=== PATIENT | male | born 1980 | race Two or more races ===

== ENCOUNTER 2017-02-28 01:23 | Inpatient (IN) | payer MEDICAID ==
--- NOTE | 2017-02-27 10:00 | NUR ---
Pt received from er. Noted Redness on right foot. Right foot + 2 edema. Noted wound on medial side of right foot and lateral side UTD measurements. IV on Left ac intact 20 gauge. Call light is within reach. Pt is in no acute distress. Addendum: 03/01/17 at 0229 by WATSON NORTON RN Wrong time and date
[~2017-02-28] VITALS: Ht 172.7 cm; Wt 122.5 kg
[2017-02-28] MEDS ORDERED: [UNRECOGNIZED DRUG - OTHER] (01:41)
[2017-02-28] MEDS ORDERED: HUMALOG (01:41)
[2017-02-28] MEDS ORDERED: GABAPENTIN CAP 300MG PO (01:44)
[2017-02-28] MEDS ORDERED: IBUPROFEN TAB 800MG PO (01:44)
[2017-02-28] MEDS ORDERED: BUPR1FIL3 SL (01:44)
[2017-02-28] MEDS ORDERED: INSU100V7 SQ (01:44)
[2017-02-28] MEDS ORDERED: INSU100C SQ (01:44)
--- NOTE | 2017-02-28 02:30 | NUR ---
Pt ambulated to room with use of crutches. Pt c/o redness, swelling, pain and drainage to right foot from previous wound debridement / toe amputation. Pt resting in position of comfort for self, awaiting further eval.
[2017-02-28] MEDS ORDERED: CEFTRIAXONE 1 G in IV DEXTROSE 5% 50 ML IV ONE (04:15)
[2017-02-28] MEDS ORDERED: VANCOMYCIN IV 1,000 MG in IV DEXTROSE 5% 250 ML IV ONE (04:15)
[2017-02-28] MEDS ORDERED: MORPHINE SULFATE 2 MG/1 ML DISP.SYRIN IV ONE (04:15)
[2017-02-28] MEDS ORDERED: METRONIDAZOLE 500 MG/NS 100ML 100 ML IV ONE ×2 (04:15→05:06)
[2017-02-28] MEDS ORDERED: IV NORMAL SALINE 1000 ML BAG IV ONE (04:15)
[2017-02-28] MEDS ORDERED: ONDANSETRON 4 MG/2 ML VIAL IV ONE (04:15)
[2017-02-28] MEDS ORDERED: MORPHINE SULFATE 4 MG/1 ML DISP.SYRIN ONE (05:05)
[2017-02-28] MEDS ORDERED: ONDANSETRON 4 MG/2 ML VIAL ONE (05:05)
[2017-02-28] MEDS ORDERED: CEFTRIAXONE 1 G VIAL ONE (05:05)
[2017-02-28 05:20] LABS: BASOPHILS % (AUTO) 0.3 % (0.0-2.0); EOSINOPHILS # (AUTO) 0.2 K/uL (0.0-0.7); EOSINOPHILS % (AUTO) 1.6 % (0.0-7.0); HEMATOCRIT 29.2 % (40-50); HEMOGLOBIN 9.1 G/DL (14.0-18.0); LYMPHOCYTES # (AUTO) 1.7 K/UL (0.8-4.8); LYMPHOCYTES % (AUTO) 12.1 % (20.5-51.5); MEAN CORPUSCULAR HEMOGLOBIN 21.9 UUG (27.0-31.0); MEAN CORPUSCULAR HGB CONC 31 g/dL (32.0-37.0); MEAN CORPUSCULAR VOLUME 69.8 FL (82.0-92.0); MONOCYTES # (AUTO) 0.7 K/UL (0.1-1.30); MONOCYTES % (AUTO) 4.8 % (0.0-11.0); NEUTROPHILS # (AUTO) 11.1 K/UL (1.8-8.9); NEUTROPHILS % (AUTO) 81.2 % (38.5-71.5); PLATELET COUNT (AUTO) 581 K/UL (150-450); RED BLOOD CELL COUNT(AUTO) 4.19 MIL/UL (4.7-6.1); WHITE BLOOD COUNT (AUTO) 13.7 K/UL (4.0-11.2)
[2017-02-28 05:33] LABS: CREATININE 0.9 mg/dL (0.6-1.3); POTASSIUM 3.8 mmol/L (3.5-5.1)
[2017-02-28 05:46] LABS: BILIRUBIN,DIRECT 0.1 mg/dL (0.0-0.2); BILIRUBIN,TOTAL 0.1 mg/dL (0.2-1.0)
--- NOTE | 2017-02-28 06:02 | NUR ---
Caroline paged for Dr. Holman
--- NOTE | 2017-02-28 06:31 | NUR ---
Pt resting in position of comfort for self. Resp even and unlabored. No obvious signs of distress at this time. Admission pending.
[2017-02-28] MEDS ORDERED: VANCOMYCIN IV 200 ML ONE (06:39)
--- NOTE | 2017-02-28 07:23 | NUR ---
Report given to KATHE Lockhart. I relinquish care of pt at this time
--- NOTE | 2017-02-28 07:25 | NUR ---
recieved pt in bed, resting. no bed available at this time. house piping inspector and floor charge nurse aware.
--- NOTE | 2017-02-28 09:00 | NUR ---
pt insisted on 4x4 and kerlix and mg to wrap the wound on lle.
--- NOTE | 2017-02-28 10:00 | NUR ---
Pt received from er. Noted Redness on right foot. Right foot + 2 edema. Noted wound on medial side of right foot and lateral side UTD measurements. IV on Left ac intact 20 gauge. Call light is within reach. Pt is in no acute distress.
[2017-02-28 10:55] VITALS: BP 135/76
[2017-02-28 12:05] LABS: *BILIRUBIN,URIN NEGATIVE (NEGATIVE); *BLOOD, URINE Trace-intact (NEGATIVE); *CLARITY,URINE CLEAR (CLEAR); *COLOR,URINE YELLOW (YELLOW); *KETONES,URINE NEGATIVE (NEGATIVE); *PROTEIN,URINE NEGATIVE (NEGATIVE); *UROBILINOGEN,URINE 0.2 E.U./dl (NORMAL); LEUKOCYTE ESTERASE ,URINE NEGATIVE (NEGATIVE); NITRITE, URINE NEGATIVE (NEGATIVE); PH,URINE 6.5 (5.0-8.0)
[2017-02-28] MEDS ORDERED: ONDANSETRON 4 MG/2 ML VIAL IV PRN ×2 (13:00→18:30)
[2017-02-28] MEDS ORDERED: INSULIN REGULAR, HUMAN 300 UNIT/3 ML VIAL SQ PRN (13:00)
[2017-02-28] MEDS ORDERED: INSULIN REGULAR, HUMAN 300 UNITS/3 ML VIAL SQ PRN (13:00)
[2017-02-28] MEDS ORDERED: PANTOPRAZOLE SODIUM 40 MG VIAL IV SCH (13:00)
[2017-02-28] MEDS ORDERED: DEXTROSE 50% 50 ML DISP.SYRIN IV PRN ×2 (13:00)
[2017-02-28 13:35] LABS: UGLUCOSE 2+ (NEGATIVE)
[2017-02-28 13:38] LABS: BACTERIA,URINE NONE SEEN /HPF (NONE SEEN); RBC,URINE NONE SEEN /HPF (0-3); SQUAMOUS EPITHELIAL CELL,UR FEW /HPF (NONE SEEN); WBC,URINE 0-3 /HPF (0-3); YEAST,URINE FEW /HPF (NONE SEEN)
[2017-02-28] MEDS: MORPHINE SULFATE 4 MG/1 ML DISP.SYRIN IV PRN ×3 (13:45→23:02)
--- NOTE | 2017-02-28 13:46 | NUR ---
CLINICAL PHARMACY NOTE:VANCOMYCIN DOSING request for vancomycin dosing on 37 y/o male 5'8" 270lbs for right foot cellulitis Temp 98.8 BUN 16 Scr 0.9 WBC 13.7 also on Zosyn Received vancomycin 1gm in ER at 0630 Continue vancomycin 2gm ivpb q10h estimated trough 16. Will order trough level prior to 4th dose. Will continue to monitor
[2017-02-28] MEDS: PIPERACILLIN/TAZOBACTAM/D5W 50 ML IV SCH ×2 (13:53→18:59)
[2017-02-28] MEDS: NICOTINE 14 MG/24HR PATCH TD SCH (13:53)
[2017-02-28 15:09] VITALS: BP 120/71
[2017-02-28] MEDS: VANCOMYCIN IV 2,000 MG in IV NORMAL SALINE 500 ML IV SCH (15:27)
[2017-02-28] MEDS ORDERED: BLOOD SUGAR DIAGNOSTIC 1 EACH STRIP VI SCH (16:30)
[2017-02-28] MEDS ORDERED: ZOLP10TA2 PO (16:55)
[2017-02-28] MEDS ORDERED: LORA-259 PO (16:56)
[2017-02-28] MEDS ORDERED: CADEXOMER IODINE 40 GM TUBE TOP SCH (17:00)
[2017-02-28] MEDS: BLOOD SUGAR DIAGNOSTIC 1 EACH STRIP VI SCH ×2 (17:31→21:25)
[2017-02-28] MEDS: INSULIN REGULAR, HUMAN 300 UNIT/3 ML VIAL SQ PRN (17:59)
[2017-02-28] MEDS ORDERED: HYDROCODONE/APAP 5-325MG TABLET PO PRN (18:30)
[2017-02-28] MEDS ORDERED: ACETAMINOPHEN 325 MG TABLET PO PRN (18:30)
--- NOTE | 2017-02-28 18:30 | NUR ---
Pt is in no acute distress. PT pain managed with dilaudid. Call light is within reach. PT alert and oriented x 3. Pt was seen by dr monahan took out sutures on right foot lateral and medial. Culture was sent earlier x 2 for the right foot wounds (lateral and medial). Dressing changed as ordered.
[2017-02-28] MEDS: GABAPENTIN 300 MG CAPSULE PO SCH (18:59)
[2017-02-28 19:00] VITALS: BP 111/65
[2017-02-28] MEDS ORDERED: DOCUSATE SODIUM 250 MG CAPSULE PO SCH (21:00)
[2017-02-28] MEDS ORDERED: RIFAMPIN 300 MG CAPSULE PO SCH (21:00)
[2017-02-28] MEDS: DOCUSATE SODIUM 100 MG CAPSULE PO SCH (21:12)
[2017-02-28] MEDS: LORAZEPAM 1 MG TABLET PO PRN (21:14)
[2017-02-28] MEDS: ZOLPIDEM 5 MG TABLET PO PRN (21:14)
[2017-02-28] MEDS: ENOXAPARIN SODIUM 40 MG/0.4 ML DISP.SYRIN SQ SCH (21:15)
[2017-02-28] MEDS: INSULIN DETEMIR 300 UNIT/3 ML CARTRIDGE SQ SCH (21:24)
[2017-02-28] MEDS: INSULIN REGULAR, HUMAN 300 UNITS/3 ML VIAL SQ PRN (21:28)
--- NOTE | 2017-03-01 | NUR ---
IV on left ac infiltrated. started new IV on right ac #20 gauge by er nurse. Call light is within reach.
--- NOTE | 2017-03-01 00:30 | NUR ---
Faxed missing vanco to nursing supervisor cab.
[2017-03-01] MEDS: PIPERACILLIN/TAZOBACTAM/D5W 50 ML IV SCH ×5 (00:33→19:05)
[2017-03-01] MEDS ORDERED: VANCOMYCIN 1000 MG VIAL ONE (03:11)
[2017-03-01] MEDS: MORPHINE SULFATE 4 MG/1 ML DISP.SYRIN IV PRN ×2 (03:35→19:05)
[2017-03-01] MEDS: VANCOMYCIN IV 2,000 MG in IV NORMAL SALINE 500 ML IV SCH ×3 (03:42→21:00)
[2017-03-01 04:00] VITALS: BP 133/81
--- NOTE | 2017-03-01 05:00 | NUR ---
Pt is in no acute distress. Call light is within reach. Pt slept comfortably.
[2017-03-01] MEDS: PANTOPRAZOLE SODIUM 40 MG TABLET.DR PO SCH ×2 (06:13→07:10)
[2017-03-01] MEDS: BLOOD SUGAR DIAGNOSTIC 1 EACH STRIP VI SCH ×4 (06:22→21:45)
[2017-03-01 07:54] LABS: BASOPHILS # (AUTO) 0.1 K/uL (0.0-8.0); BASOPHILS % (AUTO) 0.9 % (0.0-2.0); EOSINOPHILS # (AUTO) 0.3 K/uL (0.0-0.7); EOSINOPHILS % (AUTO) 3.6 % (0.0-7.0); HEMATOCRIT 26.3 % (36.7-47.1); HEMOGLOBIN 8.2 g/dL (12.5-16.3); LYMPHOCYTES # (AUTO) 1.4 K/uL (20.0-40.0); LYMPHOCYTES % (AUTO) 16.4 % (20.5-51.5); MEAN CORPUSCULAR HEMOGLOBIN 21.7 uug (23.8-33.4); MEAN CORPUSCULAR HGB CONC 31 g/dL (32.5-36.3); MEAN CORPUSCULAR VOLUME 69.3 fL (73.0-96.2); MONOCYTES # (AUTO) 0.5 K/uL (2.0-10.0); NEUTROPHILS # (AUTO) 6.4 K/uL (1.8-8.9); NEUTROPHILS % (AUTO) 73.1 % (38.5-71.5); PLATELET COUNT (AUTO) 476 K/uL (152-348)
[2017-03-01 08:01] LABS: THYROID STIMULATING HORMONE 0.865 mIU/mL (0.358-3.740)
[2017-03-01 08:08] LABS: BILIRUBIN,TOTAL 0.1 mg/dL (0.2-1.0); CREATININE 0.9 mg/dL (0.6-1.3); MAGNESIUM 1.9 mg/dL (1.8-2.4); PHOSPHOROUS 3.4 mg/dL (2.5-4.9); TOTAL PROTEIN, SERUM 7.1 g/dL (6.4-8.2)
[2017-03-01 08:31] LABS: WHITE BLOOD COUNT (AUTO) 8.7 K/uL (3.6-10.2)
[2017-03-01] MEDS: SODIUM HYPOCHLORITE 0.125% 473 ML BOTTLE TP SCH ×2 (09:00→17:54)
[2017-03-01] MEDS: NICOTINE 14 MG/24HR PATCH TD SCH (09:00)
--- NOTE | 2017-03-01 09:15 | NUR ---
pt refused to clean foot with solution stating, " I don't want to clean my foot now, I'd rather rest, I will do it later on in the day". pt was educated about the benefits of adhering to doctor's direction for medication and wound care. pt understands the consequences of not adhering to prescribed care.
[2017-03-01] MEDS: INSULIN REGULAR, HUMAN 300 UNIT/3 ML VIAL SQ SCH ×3 (09:26→16:42)
[2017-03-01] MEDS: FLUCONAZOLE 200 MG TABLET PO SCH (09:27)
[2017-03-01] MEDS: GABAPENTIN 300 MG CAPSULE PO SCH ×4 (09:27→16:44)
[2017-03-01] MEDS: CADEXOMER IODINE 40 GM TUBE TOP SCH ×2 (09:28→16:44)
[2017-03-01 11:13] VITALS: BP 124/65
--- NOTE | 2017-03-01 11:35 | NUR ---
CLINICAL PHARMACY NOTE:VANCOMYCIN DOSING To continue vancomycin dosing on 37 y/o male 5'8" 270lbs for right foot cellulitis Temp 98.2 BUN 10 Scr 0.9 WBC 8.7 Continue vancomycin 2gm ivpb q10h estimated trough 16. Second dose today at 1100. Trough ordered for tonight at 2030. RN to hold dose if Tr >20. Will check in am and adjust as needed. Will follow
[2017-03-01 12:53] LABS: BAND % (MANUAL) 1 % (0-10); EOSINOPHILS % (MANUAL) 7 % (0-8); LYMPHOCYTES % (MANUAL) 14 % (20-40); MONOCYTES % (MANUAL) 7 % (2-10); NEUTROPHILS % (MANUAL) 71 % (42-75)
--- NOTE | 2017-03-01 15:00 | NUR ---
pt c/o arm pain near IV site, upon assessment the IV is infiltrated. pt given ice and arm elevated. Pt managed to put IV on stand by and the vancomycin was stopped bagged will be continued.
[2017-03-01 15:09] VITALS: BP 121/77
--- NOTE | 2017-03-01 18:22 | NUR ---
WOUND CARE PROVIDED TO PT, DRESSING CHANGED, APPLIED MEDICATION PRESCRIBED BY MD. PT RIGHT UPPER ARM IV INFILTRATED, PT ARM IS SWOLLEN, ICE PACK GIVEN TO DECREASE SWELLING. NEW IV STARTED ON LEFT HAND, INTACT, NO INFILTRATION. PT REFUSED SELECT MEDS DURING THE DAY. PT HAS BEEN SLEEPING, LETHARGIC, WHEN ASKED IF THIS IS NORMAL PT STATES, " WHEN I AM NOT IN HOSPITAL , I HAVE INSOMNIA, HERE I CAN REST... I AM OK DON'T WORRY." CONTINUE TO MONITOR PT.
[2017-03-01 19:00] VITALS: BP 132/77
--- NOTE | 2017-03-01 19:30 | NUR ---
PATIENT ALERT ORIENTED, NO SOB NO CHEST PAIN, CONT ON PAIN MANAGEMENT, RIGHT FOOT DRESSING INTACT, CONT TO MONITOR.
[2017-03-01] MEDS: DOCUSATE SODIUM 100 MG CAPSULE PO SCH (21:32)
[2017-03-01] MEDS: INSULIN REGULAR, HUMAN 300 UNITS/3 ML VIAL SQ PRN (21:40)
[2017-03-01] MEDS: ENOXAPARIN SODIUM 40 MG/0.4 ML DISP.SYRIN SQ SCH (21:41)
[2017-03-01] MEDS: INSULIN DETEMIR 300 UNIT/3 ML CARTRIDGE SQ SCH (21:41)
--- NOTE | 2017-03-01 21:57 | NUR ---
VANCOMYCIN IV NOT GIVEN TROUGH IS 25.8, MEDS HELD PER MD ORDER.
[2017-03-02] MEDS: PIPERACILLIN/TAZOBACTAM/D5W 50 ML IV SCH ×4 (00:33→19:06)
[2017-03-02] MEDS: ZOLPIDEM 5 MG TABLET PO PRN ×2 (01:07→20:28)
[2017-03-02] MEDS: LORAZEPAM 1 MG TABLET PO PRN ×2 (01:07→21:23)
[2017-03-02] MEDS: MORPHINE SULFATE 4 MG/1 ML DISP.SYRIN IV PRN ×4 (01:15→23:06)
--- NOTE | 2017-03-02 01:55 | NUR ---
BOTTOM POLISHER FROM [facility] CALLED AND WANTED TO KNOW IF PATIENT WANTS TO BE TRANSFER TO [facility] SINCE A BED AVAILABLE. PATIENT REFUSED TO TALK TO INSURANCE REP, AND REFUSED TO BE TRANSFER AT THIS TIME. [facility] [employer] INSTRUCTOR STATED THAT SHE CALL THE MD FOR TRANSFER IN AM.
[2017-03-02 04:00] VITALS: BP 128/82
[2017-03-02] MEDS: PANTOPRAZOLE SODIUM 40 MG TABLET.DR PO SCH (06:00)
[2017-03-02] MEDS: VANCOMYCIN IV 2,000 MG in IV NORMAL SALINE 500 ML IV SCH ×2 (06:01→14:24)
[2017-03-02] MEDS: BLOOD SUGAR DIAGNOSTIC 1 EACH STRIP VI SCH ×4 (06:04→20:35)
--- NOTE | 2017-03-02 06:06 | NUR ---
PATIENT AWAKE, NO COMPLAIN OF PAIN, CONT ON PAIN MANAGEMENT, REMIND PATIENT THAT [facility] WANTS TO TRANSFER HIM TO [facility] DUE TO INSURANCE. PATIENT SLEPT MOST OF THE NIGHT, ASSISTED WITH EMPTYING URINALS, CALL LIGHT WITHIN REACH. DRESSING ON R FOOT INTACT, PATIENT MOVES ALL OVER THE BED, REMIND TO ELEVATE FOOT WITH PILLOW. CONT TO MONITOR.
--- NOTE | 2017-03-02 06:47 | NUR ---
VANCO IV NOT GIVEN, TROUGH LEVEL IS MORE THAN 20, WILL NOTIFY PHARMACY. SURFBOARD MAKER NURSE NOTIFY.
[2017-03-02] MEDS: INSULIN REGULAR, HUMAN 300 UNIT/3 ML VIAL SQ SCH ×3 (07:30→16:30)
--- NOTE | 2017-03-02 07:30 | NUR ---
Humulin R 14 unit routine med was held because pt blood sugar is 131, sliding scale was used pt given 2 units.
[2017-03-02] MEDS: GABAPENTIN 300 MG CAPSULE PO SCH ×3 (08:16→16:42)
[2017-03-02] MEDS: FLUCONAZOLE 200 MG TABLET PO SCH (08:17)
[2017-03-02] MEDS: INSULIN REGULAR, HUMAN 300 UNIT/3 ML VIAL SQ PRN ×2 (08:19→16:41)
[2017-03-02] MEDS: NICOTINE 14 MG/24HR PATCH TD SCH (09:00)
[2017-03-02] MEDS: SODIUM HYPOCHLORITE 0.125% 473 ML BOTTLE TP SCH ×2 (10:08→16:48)
[2017-03-02] MEDS: CADEXOMER IODINE 40 GM TUBE TOP SCH ×2 (10:08→16:48)
[2017-03-02 11:18] LABS: BASOPHILS # (AUTO) 0.1 K/uL (0.0-8.0); BASOPHILS % (AUTO) 1.2 % (0.0-2.0); EOSINOPHILS # (AUTO) 0.3 K/uL (0.0-0.7); EOSINOPHILS % (AUTO) 3.3 % (0.0-7.0); HEMATOCRIT 28.4 % (36.7-47.1); HEMOGLOBIN 9.2 g/dL (12.5-16.3); LYMPHOCYTES # (AUTO) 1.7 K/uL (20.0-40.0); LYMPHOCYTES % (AUTO) 21.1 % (20.5-51.5); MEAN CORPUSCULAR HEMOGLOBIN 22.1 uug (23.8-33.4); MEAN CORPUSCULAR HGB CONC 32 g/dL (32.5-36.3); MEAN CORPUSCULAR VOLUME 68.3 fL (73.0-96.2); MONOCYTES # (AUTO) 0.4 K/uL (2.0-10.0); MONOCYTES % (AUTO) 5.4 % (0.0-11.0); NEUTROPHILS # (AUTO) 5.6 K/uL (1.8-8.9); PLATELET COUNT (AUTO) 524 K/uL (152-348); RED BLOOD CELL COUNT(AUTO) 4.16 MIL/uL (4.06-5.63); WHITE BLOOD COUNT (AUTO) 8.1 K/uL (3.6-10.2)
--- NOTE | 2017-03-02 11:30 | NUR ---
pt given 4 units of insulin per sliding scale blood sugar 222. 14 unit dose held.
[2017-03-02 11:33] LABS: CREATININE 0.9 mg/dL (0.6-1.3); PHOSPHOROUS 4.4 mg/dL (2.5-4.9)
[2017-03-02 11:35] VITALS: BP 130/77
[2017-03-02] MEDS: INSULIN REGULAR, HUMAN 300 UNITS/3 ML VIAL SQ PRN ×2 (11:44→20:33)
--- NOTE | 2017-03-02 13:45 | NUR ---
CLINICAL PHARMACY NOTE:VANCOMYCIN DOSING To continue vancomycin dosing on 37 y/o male 5'8" 270lbs for right foot cellulitis Temp 98.2 BUN 11 Scr 0.9 WBC 8.1 Vancomycin trough 25.8 A/P: Since Vancomycin trough was over 20, dose was held. Will change dose to 2 gram IV every 14 hrs(first dose today at 1400) and draw trough by 4th dose(not ordered yet) for expected trough around 15 for MRSA cellulitis.
--- NOTE | 2017-03-02 14:24 | NUR ---
PT GIVEN VANCOMYCIN, DOCTOR NOTIFIED OF TROUGH < 25 AND DOCTOR STATES TO GIVE TO EVEN THE THE TROUGH IS AT THAT LEVEL.
[2017-03-02 14:41] LABS: BASOPHILS % (MANUAL) 1 % (0-2); EOSINOPHILS % (MANUAL) 2 % (0-8); LYMPHOCYTES % (MANUAL) 20 % (20-40); METAMYELOCYTES % 1 % (0-1); MONOCYTES % (MANUAL) 5 % (2-10); NEUTROPHILS % (MANUAL) 69 % (42-75)
[2017-03-02 14:44] LABS: REACTIVE LYMPHOCYTES 2 % (0-0)
[2017-03-02 15:48] VITALS: BP 151/73
--- NOTE | 2017-03-02 16:47 | NUR ---
PT GIVEN 2 UNITS OF INSULIN PER SLIDING SCALE, 14 UNITS SCHEDULED WAS HELD.
--- NOTE | 2017-03-02 18:27 | NUR ---
PT OBSERVED RESTING, PT HAS MRSA OF THE BLOOD AND IS ON CONTACT PRECAUTIONS, PT IS COMPLIANT WITH MEDICATIONS. FOOT ELEVATED AND ICED. CONTINUE TO MONITOR PT.
[2017-03-02 19:00] VITALS: BP 131/66
--- NOTE | 2017-03-02 19:30 | NUR ---
PT RECEIVED IN BED, ASLEEP. WAKES TO NAME. V/S STABLE. IN NO ACUTE DISTRESS. PT C/O OF RIGHT FOOT PAIN 10/10. WILL ADMIN PAIN MED ORDERED. IV ABX INFUSING. ON RA, TOLERATING WELL. PT SEEN WITH LOW GRADE FEVER. WILL ADMIN TYLENOL ORDERED. RIGHT FOOT ELEVATED ON TWO PILLOWS. SAFETY MEASURES IMPLEMENTED. [facility].
[2017-03-02] MEDS: DOCUSATE SODIUM 100 MG CAPSULE PO SCH (20:29)
[2017-03-02] MEDS: INSULIN DETEMIR 300 UNIT/3 ML CARTRIDGE SQ SCH (20:33)
[2017-03-02] MEDS: ENOXAPARIN SODIUM 40 MG/0.4 ML DISP.SYRIN SQ SCH (20:34)
[2017-03-02] MEDS: ACETAMINOPHEN 325 MG TABLET PO PRN (23:06)
[2017-03-03] MEDS: PIPERACILLIN/TAZOBACTAM/D5W 50 ML IV SCH ×3 (00:50→13:48)
[2017-03-03] MEDS: VANCOMYCIN IV 2,000 MG in IV NORMAL SALINE 500 ML IV SCH ×2 (03:31→18:16)
[2017-03-03 04:00] VITALS: BP 125/75
[2017-03-03] MEDS: PANTOPRAZOLE SODIUM 40 MG TABLET.DR PO SCH (06:14)
[2017-03-03] MEDS: BLOOD SUGAR DIAGNOSTIC 1 EACH STRIP VI SCH ×4 (06:19→20:43)
--- NOTE | 2017-03-03 06:37 | NUR ---
END OF SHIFT NOTES. PT SLEPT WELL THROUGHOUT SHIFT. IN STABLE CONDITION. IV ABX INFUSED. PAIN MANAGED. AFEBRILE AFTER ADMINISTRATION OF TYLENOL. ISOLATION MAINTAINED. SAFETY MAINTAINED. CALL LIGHT WITHIN REACH.
--- NOTE | 2017-03-03 08:00 | NUR ---
received awake alert dressing intact to right foot morphine given as requested for right foot pain
[2017-03-03] MEDS: INSULIN REGULAR, HUMAN 300 UNIT/3 ML VIAL SQ SCH ×3 (08:08→17:17)
[2017-03-03] MEDS: MORPHINE SULFATE 4 MG/1 ML DISP.SYRIN IV PRN ×3 (08:13→17:20)
[2017-03-03] MEDS: FLUCONAZOLE 200 MG TABLET PO SCH (08:42)
[2017-03-03] MEDS: GABAPENTIN 300 MG CAPSULE PO SCH ×3 (08:42→17:15)
[2017-03-03] MEDS: CADEXOMER IODINE 40 GM TUBE TOP SCH ×2 (08:46→17:00)
[2017-03-03] MEDS: SODIUM HYPOCHLORITE 0.125% 473 ML BOTTLE TP SCH ×2 (08:46→17:00)
[2017-03-03] MEDS: NICOTINE 14 MG/24HR PATCH TD SCH (08:46)
--- NOTE | 2017-03-03 10:00 | NUR ---
REFUSED TO HAVE DRESSING CHANGED TO RIGHT FOOT STATES "IF I CANT SMOKE HERE GET THE FUCK OUT OF MY ROOM AND LEAVE ME ALONE" DR SUMNER INFORMED
--- NOTE | 2017-03-03 11:30 | NUR ---
CLINICAL PHARMACY NOTE:VANCOMYCIN DOSING To continue vancomycin dosing on 37 y/o male 5'8" 270lbs for right foot cellulitis Temp 98.1 BUN 11 (03/02) Scr 0.9 (03/02) WBC 8.1(03/02) A/P: Will continue same dose of 2 gram IV every 14 hrs for today. 3rd dose is due today at 1800. Plan to draw trough by 4th dose(ordered for 03/04 at 0730). Pharmacy shall check the level in am & adjust if needed. will follow up.
--- NOTE | 2017-03-03 12:00 | NUR ---
DR SUMNER VISITING
[2017-03-03 12:14] VITALS: BP 140/89
[2017-03-03 15:45] VITALS: BP 131/72
[2017-03-03] MEDS: INSULIN REGULAR, HUMAN 300 UNIT/3 ML VIAL SQ PRN (17:18)
--- NOTE | 2017-03-03 18:00 | NUR ---
MORPHINE EFFECTIVE FOR PAIN
--- NOTE | 2017-03-03 18:58 | NUR ---
PATIENT COOPERATIVE WITH CARE AT THIS TIME STABLE ON Q1 HOUR ROUNDS
[2017-03-03 19:00] VITALS: BP 122/81
--- NOTE | 2017-03-03 19:30 | NUR ---
PT RECEIVED IN BED, AWAKE. A/OX4. ABLE TO MAKE NEEDS KNOWN. V/S STABLE. IN NO ACUTE DISTRESS. NO C/O PAIN AT THIS TIME. IV ABX INFUSING. ON RA, TOLERATING WELL. PT HAS LOW GRADE FEVER. COOLING MEASURES IMPLEMENTED. WILL ADMIN TYLENOL ORDERED. PT STATES FEELING ANXIOUS AND IN DEPRESSED MOOD, REQUESTS ATIVAN. ADMINISTERED ORDERED. CONTACT PRECAUTIONS IN PLACE. SAFETY MEASURES IMPLEMENTED. CALL LIGHT WITHIN REACH.
[2017-03-03] MEDS: LORAZEPAM 1 MG TABLET PO PRN (20:39)
[2017-03-03] MEDS: ACETAMINOPHEN 325 MG TABLET PO PRN (20:39)
[2017-03-03] MEDS: DOCUSATE SODIUM 100 MG CAPSULE PO SCH (20:39)
[2017-03-03] MEDS: INSULIN REGULAR, HUMAN 300 UNITS/3 ML VIAL SQ PRN (20:42)
[2017-03-03] MEDS: INSULIN DETEMIR 300 UNIT/3 ML CARTRIDGE SQ SCH (20:42)
[2017-03-03] MEDS: ENOXAPARIN SODIUM 40 MG/0.4 ML DISP.SYRIN SQ SCH (20:43)
[2017-03-03] MEDS: ZOLPIDEM 5 MG TABLET PO PRN (22:23)
[2017-03-04] MEDS: MORPHINE SULFATE 4 MG/1 ML DISP.SYRIN IV PRN ×3 (02:54→21:08)
[2017-03-04 05:38] LABS: BASOPHILS # (AUTO) 0.1 K/uL (0.0-8.0); BASOPHILS % (AUTO) 0.6 % (0.0-2.0); EOSINOPHILS # (AUTO) 0.3 K/uL (0.0-0.7); EOSINOPHILS % (AUTO) 3.9 % (0.0-7.0); HEMATOCRIT 31.6 % (36.7-47.1); HEMOGLOBIN 9.8 g/dL (12.5-16.3); LYMPHOCYTES % (AUTO) 22.9 % (20.5-51.5); MEAN CORPUSCULAR HEMOGLOBIN 21.8 uug (23.8-33.4); MEAN CORPUSCULAR HGB CONC 31 g/dL (32.5-36.3); MEAN CORPUSCULAR VOLUME 70.1 fL (73.0-96.2); MONOCYTES # (AUTO) 0.5 K/uL (2.0-10.0); MONOCYTES % (AUTO) 5.5 % (0.0-11.0); NEUTROPHILS # (AUTO) 5.8 K/uL (1.8-8.9); NEUTROPHILS % (AUTO) 67.1 % (38.5-71.5); PLATELET COUNT (AUTO) 574 K/uL (152-348); RED BLOOD CELL COUNT(AUTO) 4.51 MIL/uL (4.06-5.63); WHITE BLOOD COUNT (AUTO) 8.6 K/uL (3.6-10.2)
[2017-03-04 05:49] LABS: CREATININE 0.9 mg/dL (0.6-1.3); PHOSPHOROUS 3.8 mg/dL (2.5-4.9); POTASSIUM 3.9 mmol/L (3.5-5.1)
[2017-03-04] MEDS: PANTOPRAZOLE SODIUM 40 MG TABLET.DR PO SCH (06:14)
[2017-03-04] MEDS: BLOOD SUGAR DIAGNOSTIC 1 EACH STRIP VI SCH ×4 (06:32→21:12)
--- NOTE | 2017-03-04 06:45 | NUR ---
END OF SHIFT NOTES. PT SLEPT INTERMITTENTLY THROUGHOUT SHIFT. IN STABLE CONDITION. IV INTACT AND PATENT. ISOLATION MAINTAINED. PAIN MANAGED. ANXIETY MANAGED. INSOMNIA CORRECTED. ALL NEEDS ATTENDED. SAFETY MAINTAINED. CALL LIGHT WITHIN REACH.
--- NOTE | 2017-03-04 08:00 | NUR ---
RESTING IN BED WITH EYES CLOSED, NO SS OF DISTRESS, NO INSULIN REACTION CONTINUE WITH DIABETIC MGT
[2017-03-04] MEDS: RIFAMPIN 300 MG CAPSULE PO SCH (08:01)
[2017-03-04] MEDS: FLUCONAZOLE 200 MG TABLET PO SCH (08:02)
[2017-03-04] MEDS: GABAPENTIN 300 MG CAPSULE PO SCH ×3 (08:02→16:12)
[2017-03-04] MEDS: INSULIN REGULAR, HUMAN 300 UNIT/3 ML VIAL SQ PRN ×3 (08:05→16:17)
[2017-03-04] MEDS: CADEXOMER IODINE 40 GM TUBE TOP SCH ×2 (08:10→16:18)
[2017-03-04] MEDS: INSULIN REGULAR, HUMAN 300 UNIT/3 ML VIAL SQ SCH ×3 (08:10→16:15)
[2017-03-04] MEDS: SODIUM HYPOCHLORITE 0.125% 473 ML BOTTLE TP SCH ×2 (08:11→16:18)
--- NOTE | 2017-03-04 08:55 | NUR ---
CLINICAL PHARMACY NOTE:VANCOMYCIN DOSING To continue vancomycin dosing on 37 y/o male 5'8" 270lbs for right foot cellulitis Temp 98.1 BUN 11 Scr 0.9 WBC 8.6 Vancomycin trough today at 0730 was 10.2 A/P: Since trough is under 15, will increase dose to 2 gram IV every 11 hrs (first dose today at 1000).Plan to draw trough by 4th dose(not ordered yet) for expected trough around 15. Will follow daily.
[2017-03-04] MEDS: VANCOMYCIN IV 2,000 MG in IV NORMAL SALINE 500 ML IV SCH ×2 (09:17→21:08)
--- NOTE | 2017-03-04 10:00 | NUR ---
SEEN BY PHYSICAL THERAPY SEE NOTES. PT CONTINUE TO REFUSE THERAPY
[2017-03-04 11:34] VITALS: BP 122/86
--- NOTE | 2017-03-04 13:35 | NUR ---
CONTINUE WITH IV ANTIBIOTIC, WOUND CARE, AND PAIN MANAGEMENT
[2017-03-04 15:21] VITALS: BP 140/87
[2017-03-04 20:00] VITALS: BP 138/89
[2017-03-04] MEDS: DOCUSATE SODIUM 100 MG CAPSULE PO SCH (21:00)
[2017-03-04] MEDS: ENOXAPARIN SODIUM 40 MG/0.4 ML DISP.SYRIN SQ SCH (21:10)
[2017-03-04] MEDS: INSULIN DETEMIR 300 UNIT/3 ML CARTRIDGE SQ SCH (21:11)
[2017-03-04] MEDS: INSULIN REGULAR, HUMAN 300 UNITS/3 ML VIAL SQ PRN (21:12)
[2017-03-04] MEDS: ZOLPIDEM 5 MG TABLET PO PRN (22:17)
[2017-03-04] MEDS: LORAZEPAM 1 MG TABLET PO PRN (22:17)
[2017-03-05 04:00] VITALS: BP 127/81
[2017-03-05 04:35] VITALS: BP 127/81
[2017-03-05] MEDS: BLOOD SUGAR DIAGNOSTIC 1 EACH STRIP VI SCH ×4 (06:08→21:52)
--- NOTE | 2017-03-05 06:47 | NUR ---
END OF SHIFT SUMMERY: Pt is A&O X 4, on room air,sating well. VSS. Complained of sever pain on the right foot, morphine 4 mg IVP is given with relief. no episodes of N/V throughout shift. Dressing on the right foot is intact. Will continue to monitor and endorse patient to the next nurse to continue the care.
[2017-03-05] MEDS: PANTOPRAZOLE SODIUM 40 MG TABLET.DR PO SCH (07:00)
[2017-03-05] MEDS: MORPHINE SULFATE 4 MG/1 ML DISP.SYRIN IV PRN ×2 (07:23→21:49)
[2017-03-05] MEDS: VANCOMYCIN IV 2,000 MG in IV NORMAL SALINE 500 ML IV SCH ×2 (08:00→18:07)
--- NOTE | 2017-03-05 08:00 | NUR ---
AWAKE AND PT VERY UPSET ABOUT NOT BEING ABLE TO GO DOWN AND SMOKE, SMOKING POLICY REINFORCED. WOUND MD IN AND CHANGED DRESSING RIGHT FOOT. NOTED WOUND STILL MODERATE AMOUNT OF SEROUS DRAINAGE FOWL SMELLING. CONTINUE WITH IV ANTIBIOTIC ORDERED
[2017-03-05] MEDS: GABAPENTIN 300 MG CAPSULE PO SCH ×3 (08:06→17:10)
[2017-03-05] MEDS: FERROUS SULFATE 325 MG TABEC PO SCH ×2 (08:06→21:48)
[2017-03-05] MEDS: FLUCONAZOLE 200 MG TABLET PO SCH (08:07)
[2017-03-05] MEDS: RIFAMPIN 300 MG CAPSULE PO SCH (08:07)
[2017-03-05] MEDS: INSULIN REGULAR, HUMAN 300 UNIT/3 ML VIAL SQ PRN ×3 (08:11→17:11)
[2017-03-05] MEDS: INSULIN REGULAR, HUMAN 300 UNIT/3 ML VIAL SQ SCH ×3 (08:12→17:12)
[2017-03-05] MEDS: CADEXOMER IODINE 40 GM TUBE TOP SCH ×2 (08:13→17:14)
[2017-03-05] MEDS: SODIUM HYPOCHLORITE 0.125% 473 ML BOTTLE TP SCH ×2 (08:14→17:14)
[2017-03-05 11:06] VITALS: BP 126/77
--- NOTE | 2017-03-05 12:35 | NUR ---
CONTINUE WITH PAIN MGT AND WOUND CARE, IV ANTIBIOTIC
[2017-03-05] MEDS ORDERED: FLUC200T PO (13:14)
[2017-03-05 15:08] VITALS: BP 129/78
--- NOTE | 2017-03-05 15:14 | NUR ---
0800 dose of vanco not given, no iv access. patient refused piccline insertion and prefer po antibiotics
--- NOTE | 2017-03-05 16:11 | NUR ---
PATIENT REFUSED PICCLINE INSERTION FOR BRIDGE ATTACHER ANTIBIOTIC, PREFERS PO TX. DR MCKEON, JEREMY MADE AWARE SO WITH ID HOSPITALIST, SPOKE WITH PATIENT SEE NOTES
--- NOTE | 2017-03-05 16:50 | NUR ---
DR JEREMY MCKEON AGAIN TALKED TO PT ABOUT THE NECESSITY OF IV ANTIBIOTICS [id number] AND NEED A MIDLINE. PATIENT FINALLY AGREED
--- NOTE | 2017-03-05 16:57 | NUR ---
CLINICAL PHARMACY NOTE:VANCOMYCIN DOSING To continue vancomycin dosing on 37 y/o male 5'8" 270lbs for right foot cellulitis Temp 99.5 BUN 11 (1/2) Scr 0.9 (1/2) WBC 8.6 (1/2) A/P: No IV line since this am. 0800 dose of vanco 2 gram IV every 11 hrs was missed. Patient refused PICC line earlier & now after speaking to MD, he has agreed to PICC line. We are waiting for PICC line placement to reschedule the above regimen. Plan to draw trough by 4th dose(not ordered yet since doses were missed). Will follow daily.
--- NOTE | 2017-03-05 17:52 | NUR ---
MIDLINE INSERTION SUCCESSFUL, INSERTED OVER LEFT UPPER ARM #20
[2017-03-05] MEDS ORDERED: VANCOMYCIN IV 2,000 MG in IV DEXTROSE 5% 500 ML IV SCH (18:00)
[2017-03-05 20:00] VITALS: BP 122/75
[2017-03-05 21:00] VITALS: BP 122/75
[2017-03-05] MEDS ORDERED: INSULIN DETEMIR 300 UNIT/3 ML CARTRIDGE SQ SCH (21:00)
[2017-03-05] MEDS: DOCUSATE SODIUM 100 MG CAPSULE PO SCH (21:00)
[2017-03-05] MEDS: ENOXAPARIN SODIUM 40 MG/0.4 ML DISP.SYRIN SQ SCH (21:50)
[2017-03-05] MEDS: INSULIN REGULAR, HUMAN 300 UNITS/3 ML VIAL SQ PRN (21:52)
[2017-03-05] MEDS: LORAZEPAM 1 MG TABLET PO PRN (23:10)
[2017-03-05] MEDS: ZOLPIDEM 5 MG TABLET PO PRN (23:10)
[2017-03-06 04:00] VITALS: BP 112/73
[2017-03-06] MEDS: VANCOMYCIN IV 2,000 MG in IV NORMAL SALINE 500 ML IV SCH ×2 (04:41→16:00)
[2017-03-06] MEDS: MORPHINE SULFATE 4 MG/1 ML DISP.SYRIN IV PRN ×4 (04:48→17:55)
[2017-03-06 06:28] VITALS: BP 112/73
[2017-03-06] MEDS: PANTOPRAZOLE SODIUM 40 MG TABLET.DR PO SCH (07:00)
[2017-03-06] MEDS: BLOOD SUGAR DIAGNOSTIC 1 EACH STRIP VI SCH ×3 (07:30→17:01)
--- NOTE | 2017-03-06 07:35 | NUR ---
Received report from operations supervisor 2nd shift nurse, patient in bed asleep, no evidence of distress noted, bed in low position, side rails up x2.
[2017-03-06] MEDS: GABAPENTIN 300 MG CAPSULE PO SCH ×3 (08:59→17:46)
[2017-03-06] MEDS: RIFAMPIN 300 MG CAPSULE PO SCH (08:59)
[2017-03-06] MEDS: SODIUM HYPOCHLORITE 0.125% 473 ML BOTTLE TP SCH ×2 (09:00→17:00)
[2017-03-06] MEDS: FLUCONAZOLE 200 MG TABLET PO SCH (09:00)
[2017-03-06] MEDS: CADEXOMER IODINE 40 GM TUBE TOP SCH ×2 (09:00→17:00)
[2017-03-06] MEDS: FERROUS SULFATE 325 MG TABEC PO SCH (09:00)
--- NOTE | 2017-03-06 09:00 | NUR ---
Patient stated that Doctor did wound care this morning and doesn't need it done.
[2017-03-06] MEDS: INSULIN REGULAR, HUMAN 300 UNIT/3 ML VIAL SQ SCH ×3 (09:01→17:45)
[2017-03-06 11:04] VITALS: BP 104/73
--- NOTE | 2017-03-06 12:30 | NUR ---
CLINICAL PHARMACY NOTE:VANCOMYCIN DOSING To continue vancomycin dosing on 37 y/o male 5'8" 270lbs for right foot cellulitis Temp 98.5 BUN 11 (1/2) Scr 0.9 (1/2) WBC 8.6 (1/2) A/P: Will continue 2 gram IV every 11 hrs, since PICC line is now in. Trough ordered before 4th scheduled dose after re-start (due tomorrow early am at 0230). RN endorsed to hold dose if vanco trough >20. Will check trough in am and adjust as needed. Will follow
[2017-03-06 15:17] VITALS: BP 106/74
--- NOTE | 2017-03-06 17:00 | NUR ---
Patient stated that he doesn't want wound care done by anyone other than the doctor, and stated that the doctor said he will be back tomorrow to check on wound.
--- NOTE | 2017-03-06 19:02 | NUR ---
Patient's IV medication keeps stating down stream occlusion. Midline insertion tech was asked to insert a new midline on the other arm.
[2017-03-06 20:00] VITALS: BP 109/64
--- NOTE | 2017-03-06 20:30 | NUR ---
PT RECEIVED ON BED AND VANCOMYCIN WAS INFUSING. PT DISCHARGED ORDERED. PT PROVIDED WITH THE DISCHARGE PACKET, PRESCRIPTION AND EDUCATION TEACHING, PT VERBALIZED UNDERSTANDING BUT WAS UPSET OF BEING DISCHARGED. PT REFUSED TO COMPLETE VANCOMYCIN IV. PT WAS PROVIDED WITH CRUTCHES AND OTHER WOUND SUPPLIES. PT REFUSED TO TAKE A PHOTO OF HIS FOOT. REMOVED MIDLINE AND ID BAND. BELONGING LIST DONE. PT LEFT THE [facility] UNIT BY A WHEELCHAIR ACCOMPANIED BY TRUCK DISPATCHER AND RN. PT IS ALERT , NO DISTRESS. VITAL SIGNS STABLE. PT LEFT THE HOSPITAL WITH THE USE OF LYFT SERVICES.
== END 2017-03-06 21:01 | disposition home or self-care (01) | DRG 720 ==
LOC: ER 01:30 → MED 09:17
PROVIDERS: ADMIT Internal Medicine; ATTEND Internal Medicine
PROC: 05H633Z Insertion of Infusion Device into Left Subclavian Vein, Percutaneous Approach (ICD-10-PCS; principal; 2017-03-05)
DX: A41.02 Sepsis due to Methicillin resistant Staphylococcus aureus (principal); E11.42 Type 2 diabetes mellitus with diabetic polyneuropathy; E11.51 Type 2 diabetes mellitus with diabetic peripheral angiopathy without gangrene; F11.20 Opioid dependence, uncomplicated; E11.610 Type 2 diabetes mellitus with diabetic neuropathic arthropathy; M86.171 Other acute osteomyelitis, right ankle and foot; L03.115 Cellulitis of right lower limb; E11.65 Type 2 diabetes mellitus with hyperglycemia; E11.621 Type 2 diabetes mellitus with foot ulcer; B95.62 Methicillin resistant Staphylococcus aureus infection as the cause of diseases classified elsewhere; E11.69 Type 2 diabetes mellitus with other specified complication; F15.20 Other stimulant dependence, uncomplicated; M84.674A Pathological fracture in other disease, right foot, initial encounter for fracture; Z68.41 Body mass index [BMI] 40.0-44.9, adult; Z79.4 Long term (current) use of insulin; Z91.14 Patient's other noncompliance with medication regimen; Z89.429 Acquired absence of other toe(s), unspecified side; D63.8 Anemia in other chronic diseases classified elsewhere; E66.01 Morbid (severe) obesity due to excess calories; Z71.3 Dietary counseling and surveillance; L97.516 Non-pressure chronic ulcer of other part of right foot with bone involvement without evidence of necrosis; B37.49 Other urogenital candidiasis; F17.210 Nicotine dependence, cigarettes, uncomplicated; M89.8X7 Other specified disorders of bone, ankle and foot; M21.961 Unspecified acquired deformity of right lower leg; G89.29 Other chronic pain; F41.9 Anxiety disorder, unspecified; D50.9 Iron deficiency anemia, unspecified
CPT/HCPCS: 36415; 70030-TC; 71010; 73630; 83550; 83605; 83735; 84100; 84443; 85025; 85730; 87040; 87070; 87077; 87086; 93005; A4663; C1751; C9113; J0696; J1650; J1815; J2270; J2405; J2543; J3370; J3490; J7030; J7040; J7050